=== PATIENT | male | born 2000 | race Caucasian/White ===

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

== ENCOUNTER 2022-07-13 19:25 | Emergency (ER) | payer BC, MEDICAID ==
[~2022-07-13] VITALS: Ht 167 cm; Wt 81.6 kg
[2022-07-13 19:43] LABS: BILIRUBIN,URINE NEGATIVE (NEGATIVE); CLARITY,URINE CLOUDY; COLOR,URINE RED; GLUCOSE, URINE (UA) NEGATIVE (NEGATIVE); KETONES,URINE NEGATIVE (NEGATIVE); LEUKOCYTE ESTERASE ,URINE TRACE (NEGATIVE); NITRITE,URINE NEGATIVE (NEGATIVE); PH,URINE 6.5 (5-9); PROTEIN,URINE 1+ (NEGATIVE)
[2022-07-13 19:51] LABS: BACTERIA,URINE TRACE /HPF; RBC,URINE 50-100 /HPF
--- NOTE | 2022-07-13 20:13 | ED GU-Male ---
General Chief Complaint: - Reproductive Stated Complaint: BLOOD IN URINE Nursing Triage Note: patient verbalized he has blood in his urine. patient states this started this afternoon. denies pain. states burining with urination. Source: patient Exam Limitations: no limitations History of Present Illness Date Seen by Provider: Jul 13, 2022 Time Seen by Provider: 19:28 Initial Comments 21-year-old male with no pertinent past medical history coming in due to hematuria. Said it started roughly an hour prior to arrival. No significant amount of pain associated with it including none around his penis or his flank. Denies any fever, abdominal pain, nausea, vomiting, diarrhea, weakness, nu mbness, or any other concerns. Does not take any blood thinners. Denies any trauma. Denies anything like this happening before other than he believes a week ago he saw slightly less blood in his urine 1 time. Denies any family history of anything similar other than his father does have kidney stones. Allergies and Home Medications Allergies Coded Allergies: No Known Drug Allergies (Unverified , 07/13/22) Patient Home Medication List Home Medication List Reviewed: Yes Review of Systems Review of Systems Constitutional: No fever EENTM: no symptoms reported Respiratory: no symptoms reported Cardiovascular: no symptoms reported Gastrointestinal: no symptoms reported Genitourinary: see HPI Musculoskeletal: no symptoms reported Skin: no symptoms reported Psychiatric/Neurological: No Symptoms Reported Endocrine: No Symptoms Reported Hematologic/Lymphatic: No Symptoms Reported All Other Systemes Reviewed Negative Unless Noted: Yes Past Juvepgc-Mzcvew-Wckapm Hx Patient Social History Tobacco Use?: No Use of E-Cig and/or Vaping dev: Yes Substance use?: No Seasonal Allergies Seasonal Allergies: No Past Medical History Surgeries: No Respiratory: No Cardiac: No Neurological: No Genitourinary: No Gastrointestinal: No Musculoskeletal: No Endocrine: No HEENT: No Cancer: No Psychosocial: Yes Anxiety Integumentary: No Blood Disorders: No Physical Exam Vital Signs Vital Signs - First Documented 07/13/22 19:42 Temp 36.8 Pulse 120 Resp 18 B/P (MAP) 132/81 (98) Pulse Ox 100 O2 Delivery Room Air Capillary Refill : Less Than 3 Seconds Height, Weight, BMI Height: '" Weight: lbs. oz. kg; 29.00 BMI Method: General Appearance: WD/WN, no apparent distress HEENT: PERRL/EOMI, normal ENT inspection, pharynx normal Neck: non-tender, full range of motion, supple, normal inspection Cardiovascular: regular rate, rhythm, no edema, no murmur Respiratory: chest non-tender, lungs clear, normal breath sounds, no respirato ry distress, no accessory muscle use Gastrointestinal: normal bowel sounds, non tender, soft; No guarding, No rebound Back: normal inspection, no CVA tenderness Extremities: normal range of motion, non-tender, normal inspection, no pedal edema, no calf tenderness, normal capillary refill Neurologic/Psychiatric: no motor/sensory deficits, alert, normal mood/affect Skin: normal color, warm/dry Lymphatic: no adenopathy Progress/Results/Core Measures Suspected Sepsis SIRS Temperature: Pulse: 120 Respiratory Rate: 18 Blood Pressure 132 /81 Mean: 98 Results/Orders Lab Results Laboratory Tests Test 07/13/22 19:30 Range/Units Urine Color RED H Urine Clarity CLOUDY Urine pH 6.5 5-9 Urine Specific [place] 1.010 L 1.016-1.022 Urine Protein 1+ H NEGATIVE Urine Glucose (UA) NEGATIVE NEGATIVE Urine Ketones NEGATIVE NEGATIVE Urine Nitrite NEGATIVE NEGATIVE Urine Bilirubin NEGATIVE NEGATIVE Urine Urobilinogen 0.2 < = 1.0 MG/DL Urine Leukocyte Esterase TRACE H NEGATIVE Urine RBC (Auto) 3+ H NEGATIVE Urine RBC 50-100 H /HPF Urine WBC 5-10 H /HPF Urine Squamous Epithelial Cells NONE /HPF Urine Crystals NONE /LPF Urine Bacteria TRACE /HPF Urine Casts NONE /LPF Urine Mucus MODERATE H /LPF Urine Culture Indicated YES My Orders Orders - MARTÍN BULLARD MD Ua Culture If Indicated (07/13/22 19:29) Urine Culture (07/13/22 19:30) Vital Signs/I&O 07/13/22 07/13/22 19:42 20:22 Temp 36.8 Pulse 120 90 Resp 18 18 B/P (MAP) 132/81 (98) 129/66 Pulse Ox 100 98 O2 Delivery Room Air Room Air Capillary Refill : Less Than 3 Seconds Blood Pressure Mean: 98 Progress Note : Progress Note 21-year-old male with above history coming in due to painless hematuria. ABCs were intact and vitals were stable on presentation. Physical exam reassuring including a soft and nontender abdomen and no flank pain. Urinalysis with blood but no obvious infection. I did a [id number] ultrasound showing no large stone, no hydronephrosis, and the decompressed bladder with no obvious hyperechoic blood clots. I discussed the differential of hematuria with the patient. I recommended follow-up with a urologist as an outpatient for repeat urinalysis and further testing if they decide is warranted at that time. Departure Impression Primary Impression: Painless hematuria Disposition: HOME, SELF-CARE Condition: Stable Departure-Patient Inst. Decision time for Depature: 20:12 Referrals: NO,LOCAL PHYSICIAN (PCP) Primary Care Physician DONTE URRUTIA MD Patient Instructions: Blood in the Urine (Hematuria), Adult (DC) Add. Discharge Instructions: Given your age and history, this is most likely a very small kidney stone that is passing without pain. You need to follow-up with Dr. Urrutia in the next couple of weeks for repeat urinalysis. He may decide to do more testing or not at that time. Drink plenty of fluids. If you ever get to the point where you are unable to urinate, you have severe pain in your flank or with urination, or have any other concerns then you can always come back to the ER. Work/School Note: Work Release Form Date Seen in the Emergency Department: Jul 13, 2022 Return to Work: Jul 14, 2022 Restrictions: No Restrictions MARTÍN BULLARD MD Jul 13, 2022 20:13
[2022-07-13 20:22] VITALS: BP 129/66
== END 2022-07-13 20:22 | disposition home or self-care (01) ==
LOC: EDUNIT# 19:25 → ER FS 19:26
DX: R31.9 Hematuria, unspecified (principal); Z28.310 Unvaccinated for COVID-19
CPT/HCPCS: 81000; 87088; 99282

== ENCOUNTER → 2022-07-27 | Outpatient (CLI) | payer BC ==
--- NOTE | 2022-07-27 17:13 | Diagnostic Imaging Report ---
INDICATION: Painless hematuria. EXAM: KUB at 2:11 PM FINDINGS: The lung bases are clear. Bowel gas pattern is normal. There are no pathologic masses or calcifications. IMPRESSION: No acute abnormalities in the abdomen. Dictated by: Dictated on workstation # [id number]
== END ==
LOC: RAD 13:45
PROVIDERS: ATTEND Urology
DX: R31.9 Hematuria, unspecified (principal)
CPT/HCPCS: 74018

== ENCOUNTER → 2022-08-04 | Outpatient (CLI) | payer BC ==
--- NOTE | 2022-08-04 12:00 | Diagnostic Imaging Report ---
PROCEDURE: CT abdomen and pelvis without contrast. TECHNIQUE: Multiple contiguous axial images were obtained through the abdomen and pelvis without the use of intravenous contrast. Auto Exposure Controls were utilized during the CT exam to meet ALARA standards for radiation dose reduction. INDICATION: Flank pain. COMPARISON: No priors. FINDINGS: There is no hydroureteronephrosis. There is no perinephric or periureteric stranding. The upper pelvic right retroperitoneal calcification measuring 4.5 mm is inseparable from the mid to distal third of the right ureter, however, results in no upstream dilatation, may be an adjacent phlebolith, but a nonobstructing ureteral stone could not be excluded in the appropriate scenario. The urinary bladder appeared normal, and no other calcifications were found. The appendix is normal. There is no bowel obstruction. Liver, gallbladder, bile ducts, spleen, adrenals, and pancreas are all nonacute. The aorta is nonaneurysmal. IMPRESSION: No intrarenal stone or hydronephrosis. A stone in the mid to distal third of the right ureter, however, measuring 4.5 mm is suggested by its location; correlate clinically. No other potential acute finding. Again, no hydronephrosis. If indicated to confirm or refute ureteral positioning of this stone, postcontrast-enhanced imaging with delayed acquisitions could resolve this indeterminacy. Dictated by: Dictated on workstation # [id number]
== END ==
LOC: RAD FS 07:45
PROVIDERS: ATTEND Urology
DX: N20.1 Calculus of ureter (principal)
CPT/HCPCS: 74176

== ENCOUNTER → 2022-08-17 | Outpatient (CLI) | payer BC ==
[~2022-08-17] MED LIST: KETO10TA PO; NITR-65 PO; TMSL.4C PO
--- NOTE | 2022-08-17 16:50 | Diagnostic Imaging Report ---
INDICATION: History of ureteral calculus. COMPARISON: 07/27/2022. FINDINGS: Two frontal radiographic views of the abdomen were obtained. No unexpected extraosseous calcifications or radiopaque foreign bodies are seen. Small bowel loops are nondistended. There is no large collection of free intraperitoneal air. No unexpected radiopaque foreign bodies are seen. IMPRESSION: 1. Nonobstructed small bowel gas pattern. Dictated by: Dictated on workstation # [id number]
== END ==
LOC: RAD 15:16
PROVIDERS: ATTEND Urology
DX: N20.2 Calculus of kidney with calculus of ureter (principal)
CPT/HCPCS: 74018

== ENCOUNTER 2022-08-18 06:15 | Day surgery (SDC) | payer BC ==
[~2022-08-18] VITALS: Ht 165.1 cm; Wt 81.6 kg
[2022-08-18] VITALS (9 sets, daily range): BP systolic 113–140; BP diastolic 6–91
[2022-08-18] MEDS ORDERED: cefTRIAXone 1 GM PRE-MIX 50 ML IV ONE (06:30)
[2022-08-18] MEDS: LACTATED RINGERS 1,000 ML IV PRN ×2 (06:42→10:36)
--- NOTE | 2022-08-18 07:25 | Progress Note-Pre Operative ---
Pre-Operative Progress Note Date of Available H&P: Aug 18, 2022 Date H&P Reviewed: Aug 18, 2022 Time H&P Reviewed: 07:25 Changes from last HP NONE Pre-Operative Diagnosis: RT URETERAL STONE DONTE URRUTIA MD Aug 18, 2022 07:25
--- NOTE | 2022-08-18 08:01 | Diagnostic Imaging Report ---
INDICATION: Nephrolithiasis, ESWL. TECHNIQUE: 2 supine radiograph of the abdomen 7:26 AM CORRELATION STUDY: 08/17/2022 FINDINGS: Slightly triangular-shaped 7 mm calcification of the right pelvis likely distal right ureteral calcification is present. No definitive abnormal calcification over the renal silhouettes or expected course left ureter. Moderate amount of overlying bowel gas and stool. Minimal leftward rotation lumbar spine. IMPRESSION: 1. Approximately 7 mm calcification right hemipelvis likely distal right ureteral calcification. Dictated by: Dictated on workstation # [id number]
--- NOTE | 2022-08-18 09:55 | Progress Note-Post Operative ---
Post-Operative Progess Note Surgeon (s)/Internet Marketing Consultant (s) Surgeon DONTE URRUTIA MD Internet Marketing Consultant: NONE Pre-Operative Diagnosis RT URETERAL STONE Post-Operative Diagnosis SAME Procedure & Operative Findings Date of Procedure 08/18/22 Procedure Performed/Findings CYSTOSCOPY, RT URETEROSCOPY WITH STONE LITHOTRIPSY Anesthesia Type GENERAL Estimated Blood Loss Estimated blood loss (mL): NONE Specimens/Packing Specimens Removed NONE Packing: NONE DONTE URRUTIA MD Aug 18, 2022 09:55
--- NOTE | 2022-08-18 09:56 | Discharge Inst-Urology ---
Discharge Inst-Urology Reconcile Patient Problems Problems Reviewed?: Yes Final Diagnosis RT DISTAL URETERAL STONE Patient Instructions/Follow Up Plan/Assessment/Instructions Please make appointment to been seen in office in 3 weeks. No KUB's, No ESWL instructions Strain urines and save any fragments then quit straining Increase oral fluids for 48 hours and then as needed. Diet and Activity as tolerated. If questions or concerns contact your physician Or seek help at emergency department. DONTE URRUTIA MD Aug 18, 2022 09:56
[2022-08-18] MEDS ORDERED: fentaNYL INJ 100 MCG/2 ML AMP ONE (10:18)
[2022-08-18] MEDS ORDERED: MIDAZOLAM 2 MG/2 ML (VERSED) VIAL ONE (10:18)
[2022-08-18] MEDS ORDERED: proPOfol 200 MG/20 ML (DIPRIVAN) VIAL IV ONE (10:33)
[2022-08-18] MEDS ORDERED: PROPOFOL INJECTION 0 ML IV ONE (10:33)
[2022-08-18] MEDS ORDERED: LIDOCAINE PF 2% 5 ML (XYLOCAINE) VIAL ONE (10:33)
[2022-08-18] MEDS ORDERED: SEVOFLURANE (ULTANE) 15 ML INHAL SOLN ONE (10:33)
[2022-08-18] MEDS ORDERED: ONDANSETRON 4 MG/2 ML (SDV) Z0FRAN ONE (10:33)
[2022-08-18] MEDS ORDERED: KETOROLAC 30 MG/ML VIAL ONE (10:52)
[2022-08-18] MEDS ORDERED: FUROSEMIDE 40 MG/4 ML INJ (LASIX) ONE (10:52)
--- NOTE | 2022-08-18 11:13 | Anesthesia-General Post-Op ---
General Patient Condition Mental Status/LOC: Same as Preop Cardiovascular: Satisfactory Nausea/Vomiting: Absent Respiratory: Satisfactory Pain: Controlled Complications: Absent Post Op Complications Complications None Follow Up Care/Instructions Patient Instructions None needed. Anesthesia/Patient Condition Patient Condition Patient is doing well, no complaints, stable vital signs, no apparent adverse anesthesia problems. No complications reported per nursing. JESUS MANUEL HORNE CRNA Aug 18, 2022 11:13
[2022-08-18] MEDS ORDERED: fentaNYL INJ 100 MCG/2 ML AMP IVP ONE (11:15)
[2022-08-18] MEDS ORDERED: ONDANSETRON 4 MG/2 ML (SDV) Z0FRAN IVP PRN (11:15)
[2022-08-18] MEDS ORDERED: TMSL.4C PO (11:49)
[2022-08-18] MEDS ORDERED: NITR-65 PO (11:49)
[2022-08-18] MEDS ORDERED: KETO10TA PO (11:49)
--- NOTE | 2022-08-18 16:36 | Diagnostic Imaging Report ---
INDICATION: Lithotripsy, stent placement FINDINGS AND IMPRESSION: Imaging provided for procedure for Dr. Montague. No images were saved for interpretation by radiologist. See procedural note for full details. Fluoroscopy time: 28.8 seconds. Dictated by: Dictated on workstation # [id number]
--- NOTE | 2022-08-18 17:03 | OPERATIVE REPORT ---
DATE OF SERVICE: 08/18/2022 PREOPERATIVE DIAGNOSIS: Right distal ureteral stone. POSTOPERATIVE DIAGNOSIS: Right distal ureteral stone. PROCEDURES PERFORMED: Cystoscopy with right ureteroscopy and stone lithotripsy. SURGEON: Dr. Urrutia. ANESTHESIA: General. COMPLICATIONS: None. DESCRIPTION OF PROCEDURE: Under satisfactory general anesthesia, the patient in lithotomy position, genitalia were prepped and draped in the usual sterile fashion. Cystoscope was introduced under direct vision. Anterior urethra was normal. The prostate was nonobstructing. Bladder neck was entered. The bladder was normal except for a sluggish efflux on the right side. Using the foroblique lens, I dilated the right ureteral orifice intramural portion to the level of the stone to accommodate a 6.9-[place] semirigid ureteroscope, visualized the stone that was floating, probably disimpacted from the dilatation, so I went ahead and broke it up with the lithoclast first at a power of 5 in order not to use the stone proximally and then finished it up with the power of 12. completed fragmentation of the stone and some of the fragments fell into the bladder. I removed the ureteroscope, reinserted the cystoscope to empty the bladder. The patient tolerated the procedure and anesthesia well and was sent to recovery room in stable condition. Instructions were given to his girlfriend. Job ID: [id number] DocumentID: [id number] Dictated Date: 08/18/2022 10:57:07 Handle Bar Assembler Date: 08/18/2022 17:01:00 Dictated By: DONTE URRUTIA MD
== END 2022-08-18 12:45 | disposition home or self-care (01) ==
LOC: SDC 06:15
PROVIDERS: ATTEND Urology
DX: N20.1 Calculus of ureter (principal); F17.290 Nicotine dependence, other tobacco product, uncomplicated; Z28.310 Unvaccinated for COVID-19
CPT/HCPCS: 74018; 76000; 87081

== ENCOUNTER 2022-09-10 00:01 | Outpatient (RCR) | payer BC | END 2022-10-03 | disposition home or self-care (01) | LOC: LAB 00:01 | PROVIDERS: ATTEND Urology | DX: Z87.442 Personal history of urinary calculi (principal) | CPT/HCPCS: 36415; 82140; 82340; 82507; 82570; 83735; 83945; 83986; 84105; 84133; 84300; 84392; 84560; 88300 ==